=== PATIENT | female | born 1975 | race Two or more races ===

== ENCOUNTER 2017-08-15 09:31 | Emergency (ER) | payer OTHER ==
[2017-08-15 09:45] VITALS: RESP 16; TEMP 97.7
[2017-08-15] MEDS ORDERED: PROPARACAINE 0.5% 15 ML OPHT DROP ONE (10:47)
[2017-08-15] MEDS ORDERED: IBUPROFEN 600 MG TAB PO ONE (11:05)
--- NOTE | 2017-08-15 11:15 | EDPHY ---
H & P Stated Complaint: chem exposure ,breathing in for 1 hour. Time Seen by Provider: 08/15/17 09:47 HPI/ROS: CHIEF COMPLAINT: Chemical exposure History by patient and with the school athletic director on the telephone. 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 She was removed from the environment and exposure did not last any longer than an hour and then she was referred here. She did not get any of the chemical on her skin, an her eyes or in her mouth or other direct exposure. REVIEW OF SYSTEMS: As in HPI, and all other systems reviewed and are negative Source: Patient - Personal History LMP (Females 10-55): 1-7 Days Ago Current Tetanus Diphtheria and Acellular Pertussis (TDAP): Yes - Medical/Surgical History Hx Asthma: No Hx Chronic Respiratory Disease: No Hx Diabetes: No Hx Cardiac Disease: No Other PMH: denies - Social History Smoking Status: Never smoked - Physical Exam Exam: General Appearance: Alert, well appearing, speaking full sentences. Eyes: Pupils equal and round no pallor or injection. Extraocular movements are intact, pH equals 6 ENT, Mouth: Mucous membranes moist. No lesions Respiratory: Normal, effort, lungs are clear to auscultation. No wheezes, rales or rhonchi. Cardiovascular: Regular rate and rhythm. S1, S2, no murmurs, gallops or rubs appreciated Gastrointestinal: Abdomen is soft and nontender, no masses, bowel sounds normal. Back: No CVA tenderness, no bony tenderness Neurological: Awake, alert and oriented x 3, no pronator drift, normal gait, no pronator drift Skin: Warm and dry, no rashes. Musculoskeletal: No deformities or tenderness. Extremitie:s full range of motion, no edema Psychiatric: Patient has normal affect, there is no agitation. Constitutional: Initial Vital Signs Temperature (C) 36.5 C 08/15/17 09:35 Heart Rate 62 08/15/17 09:35 Respiratory Rate 16 08/15/17 09:35 Blood Pressure 106/62 08/15/17 09:35 O2 Sat (%) 97 08/15/17 09:35 O2 Delivery Mode Room Air Allergies/Adverse Reactions: No Known Allergies Allergy (Unverified 08/15/17 09:39) Home Medications: Medication Instructions Recorded NK [No Known Home Meds] 08/15/17 Medical Decision Making ED Course/Re-evaluation: Patient presents after exposure to chemical fumes at work. There was no topical exposure to skin, eyes were mucous membranes. Poison Control was consulted. Patient was complaining of headache. PH of eyes was checked and was 6. Patient was irrigated with normal saline and on recheck pH was back to 7. Slit-lamp exam revealed no evidence of corneal lesion. Patient's vital signs are stable on respiratory exam was clear. Point control recommended rinsing and gargling and then spitting and then confirming patient could take oral fluids. Patient was able to tolerate drinking fluids without difficulty. Patient was discharged home in stable condition with reassurance. - Data Points Medications Given: Discontinued Medications Ibuprofen (Motrin) 600 mg PO EDNOW ONE Stop: 08/15/17 11:06 Last Admin: 08/15/17 11:09 Dose: 600 mg Departure - Departure Disposition: Home, Routine, Self-Care Clinical Impression: Exposure to chemical irritant Condition: Good Additional Instructions: You were seen by Dr. Yashira Villaseñor today. We have found no significant problems related to exposure. You should feel better tomorrow. Return for any worsening or new concerns. Referrals: NONE *PRIMARY CARE P,. [Primary Care Provider] - As per Instructions
[2017-08-15 11:37] VITALS: BP 116/67; PULSE 58; O2SAT 98
== END 2017-08-15 11:35 | disposition home or self-care (01) ==
LOC: CED 09:31
DX: Z77.098 Contact with and (suspected) exposure to other hazardous, chiefly nonmedicinal, chemicals (principal)